=== PATIENT | female | born 1995 | race Caucasian/White ===

== ENCOUNTER 2018-03-22 16:51 | Outpatient (CLI) | payer OTHER | END 2018-03-22 20:08 | disposition home or self-care (01) | LOC: OBT 16:51 → L-D 16:52 → OBT 20:08 | DX: O36.8130 Decreased fetal movements, third trimester, not applicable or unspecified (principal); Z3A.38 38 weeks gestation of pregnancy | CPT/HCPCS: 76818 ==

== ENCOUNTER 2018-03-25 13:26 | Inpatient (IN) | payer OTHER ==
[2018-03-25 17:27] LABS: ADD MAN DIFF? NO
[2018-03-25 17:30] LABS: WHITE BLOOD COUNT 8.1 10^3/ul (4.8-10.8)
[2018-03-25 17:30] LABS: BASOPHILS % 0.4 % (0.0-2.0); EOSINOPHILS # 0.1 10^3/ul (0.0-0.5); EOSINOPHILS % 1.7 % (0.0-7.0); HEMATOCRIT 34.3 % (37.0-47.0); HEMOGLOBIN 10.9 g/dl (12.0-16.0); LYMPHOCYTES # 1.7 10^3/ul (0.8-2.9); LYMPHOCYTES % 21.3 % (15.0-51.0); MEAN CORPUSCULAR HEMOGLOBIN 25.2 pg (29.0-33.0); MEAN CORPUSCULAR HGB CONC 31.8 g/dl (32.0-37.0); MEAN CORPUSCULAR VOLUME 79.4 fl (82.0-101.0); MEAN PLATELET VOLUME 9.7 fl (7.4-10.4); MONOCYTE # 0.9 10^3/ul (0.3-0.9); MONOCYTES % 10.6 % (0.0-11.0); NEUTROPHIL # 5.3 10^3/ul (1.6-7.5); NEUTROPHILS % 64.8 % (39.0-77.0); PLATELET COUNT 213 10^3/UL (140-415); RED BLOOD COUNT 4.32 10^6/ul (4.20-5.40); RED CELL DISTRIBUTION WIDTH 14.7 % (11.5-14.5)
[2018-03-25] MEDS ORDERED: CARBOPROST 250 MCG INJ IM (17:30)
[2018-03-25] MEDS ORDERED: OXYTOCIN 30 UNITS/LR 500 ML IV (17:30)
[2018-03-25] MEDS ORDERED: BUTORPHANOL 2 MG INJ IV (17:30)
[2018-03-25] MEDS ORDERED: METHYLERGONOVINE 0.2 MG INJ IM (17:30)
[2018-03-25] MEDS ORDERED: IBUPROFEN 600 MG TAB PO (17:30)
[2018-03-25] MEDS: LACTATED RINGER'S 1,000 ML IV ×2 (17:43→17:44)
[2018-03-25 17:48] LABS: INR 1.04; PROTIME 13.7 Sec (11.9-14.9); PT RATIO 1.1
[2018-03-25 17:49] LABS: PARTIAL THROMBOPLASTIN TIME 31.8 Sec (25.0-35.0)
[2018-03-25 18:18] LABS: HEPATITIS B SURFACE ANTIGEN NEGATIVE (NEGATIVE)
[2018-03-25] MEDS: AMPICILLIN 2 GM/NS (PMX) 100 ML IV (18:19)
[2018-03-25] MEDS: MISOPROSTOL 25 MCG CAPSULE PO ×2 (18:54→23:01)
[2018-03-25] MEDS: AMPICILLIN 1 GM/NS (PMX) 50 ML IV (22:16)
[2018-03-26] MEDS: LACTATED RINGER'S 1,000 ML IV ×3 (02:21→18:12)
[2018-03-26] MEDS: MISOPROSTOL 25 MCG CAPSULE PO ×4 (03:08→20:19)
[2018-03-26 15:19] LABS: RAPID PLASMA REAGIN NONREACTIVE (NR)
[2018-03-26] MEDS ORDERED: MINERAL OIL LIGHT 10 ML VIAL TOP (21:00)
[2018-03-27] MEDS: OXYTOCIN 30 UNITS/LR 500 ML IV ×3 (01:40→18:39)
[2018-03-27] MEDS: LACTATED RINGER'S 1,000 ML IV ×2 (02:19→10:26)
[2018-03-27] MEDS: LIDOCAINE 1% (MPF) 30 ML INJ INJ (14:38)
[2018-03-27] MEDS: MISOPROSTOL 200 MCG TAB PR (14:48)
[2018-03-27] MEDS ORDERED: DEXTROSE 5%-LR 1,000 ML IV (15:13)
[2018-03-27] MEDS ORDERED: METHYLERGONOVINE 0.2 MG INJ IM (15:30)
[2018-03-27] MEDS ORDERED: ONDANSETRON 4 MG INJ IV (15:30)
[2018-03-27] MEDS ORDERED: DIBUCAINE 1% 30 GM OINT PR (15:30)
[2018-03-27] MEDS ORDERED: ACETAMINOPHEN 325 MG TAB PO (15:30)
[2018-03-27] MEDS ORDERED: DIPHENHYDRAMINE 50 MG INJ IV (15:30)
[2018-03-27] MEDS ORDERED: OXYTOCIN 30 UNITS/LR 500 ML IV (15:30)
[2018-03-27] MEDS ORDERED: ZOLPIDEM 5 MG TAB PO (15:30)
[2018-03-27] MEDS ORDERED: MISOPROSTOL 200 MCG TAB PR (15:30)
[2018-03-27] MEDS ORDERED: CARBOPROST 250 MCG INJ IM (15:30)
[2018-03-27] MEDS: LACTATED RINGER'S 1,000 ML IV* ×2 (16:00→19:27)
[2018-03-27] MEDS: WITCH HAZEL/GLYCERIN PAD PR (18:39)
[2018-03-27] MEDS: LANOLIN 7 GM TUBE TOP (18:39)
[2018-03-27] MEDS: IBUPROFEN 600 MG TAB PO ×2 (18:39→23:35)
[2018-03-27] MEDS: BENZOCAINE 20% 56 ML SPRAY TOP (18:40)
[2018-03-28] MEDS: IBUPROFEN 600 MG TAB PO ×3 (06:08→18:03)
[2018-03-28] MEDS: SENNA/DOCUSATE NA (8.6MG/50MG) TAB PO (09:12)
[2018-03-28 10:18] LABS: ADD MAN DIFF? NO
[2018-03-28 10:20] LABS: BASOPHILS % 0.2 % (0.0-2.0); EOSINOPHILS # 0.1 10^3/ul (0.0-0.5); HEMATOCRIT 32.3 % (37.0-47.0); HEMOGLOBIN 10.4 g/dl (12.0-16.0); LYMPHOCYTES # 1.9 10^3/ul (0.8-2.9); LYMPHOCYTES % 15.5 % (15.0-51.0); MEAN CORPUSCULAR HEMOGLOBIN 24.9 pg (29.0-33.0); MEAN CORPUSCULAR HGB CONC 32.2 g/dl (32.0-37.0); MEAN CORPUSCULAR VOLUME 77.5 fl (82.0-101.0); MEAN PLATELET VOLUME 10.4 fl (7.4-10.4); MONOCYTE # 0.4 10^3/ul (0.3-0.9); MONOCYTES % 3.5 % (0.0-11.0); NEUTROPHIL # 9.7 10^3/ul (1.6-7.5); NEUTROPHILS % 79.1 % (39.0-77.0); PLATELET COUNT 217 10^3/UL (140-415); RED BLOOD COUNT 4.17 10^6/ul (4.20-5.40); RED CELL DISTRIBUTION WIDTH 15.1 % (11.5-14.5)
[2018-03-28 10:20] LABS: WHITE BLOOD COUNT 12.2 10^3/ul (4.8-10.8)
[2018-03-28] MEDS: OXYCODONE/ASPIRIN (4.88/325) TAB PO (19:03)
[2018-03-29] MEDS: OXYCODONE/ASPIRIN (4.88/325) TAB PO ×3 (00:25→18:22)
[2018-03-29] MEDS: IBUPROFEN 600 MG TAB PO ×4 (06:00→18:00)
[2018-03-29] MEDS: SENNA/DOCUSATE NA (8.6MG/50MG) TAB PO (06:03)
[2018-03-29] MEDS: MEASLES,MUMPS,RUBELLA VACCINE INJ SC* (09:38)
[2018-03-29] MEDS: DIPHTH/TET/ACEL PERTUSS (ADULT) 0.5 ML VIAL IM* (15:06)
== END 2018-03-29 16:15 | disposition home or self-care (01) | DRG 775 ==
LOC: OBT 13:26 → PP1 03-27 15:48 → L-D 13:26 → OBT 17:00 → L-D 17:00
PROVIDERS: Obstetrics & Gynecology
PROC: 10E0XZZ Delivery of Products of Conception, External Approach (ICD-10-PCS; principal; 2018-03-27)
DX: O80 Encounter for full-term uncomplicated delivery (principal); Z3A.39 39 weeks gestation of pregnancy; Z37.0 Single live birth
CPT/HCPCS: 76815; 76818; 85025; 85610; 85730; 86592; 86850; 86900; 86901; 87340; 90715